=== PATIENT | female | born 1985 | race Caucasian/White ===

== ENCOUNTER → 2020-06-05 | Day surgery (SDC) | payer OTHER ==
[~2020-06-05] MED LIST: ASPIRIN EC81 MG PO; BUSPIRONE HCL15 MG PO; CLARITIN10 MG PO; CLINDAMYCIN 15150 MG PO; CLONAZEPAM0.5 MG PO; DIFLUCAN150 MG PO; ELAVIL50 MG PO; HYDROXYZINE PA100 MG PO; LEXAPRO 10MG TA10 MG PO; MOTRIN600 MG PO; NEURONTIN300 MG PO; RIZATRIPTAN10 MG PO; SINGULAIR10 MG PO; TRAZODONE 50MG50 MG PO; VENTOLIN HFA IN18 GM INH
[2020-06-05 08:18] LABS: HCG (URINE) SCREEN NEGATIVE (NEGATIVE)
[2020-06-05 08:42] LABS: BASOPHIL 0.3 % (0-2); EOSINOPHIL 1.6 % (0-5); HCT 40.8 % (37.0-47.0); HGB 13.4 g/dl (12.5-16.0); LYMPHOCYTE 26.3 % (15-48); MCH 28.8 pg (25.0-31.0); MCHC 32.8 g/dL (32.0-36.0); MCV 87.7 fL (78.0-100.0); MONOCYTE 5.4 % (0-12); MPV 9.4 fL (6.0-9.5); NRBC 0; PLT 185 K/uL (150-400); RBC 4.65 M/uL (4.20-5.40); RDW 12.4 % (11.5-14.0); WBC 10.3 K/uL (4.0-10.5)
== END | disposition home or self-care (01) ==
LOC: FAS 07:40
PROVIDERS: Oral & Maxillofacial Surgery
DX: K02.9 Dental caries, unspecified (principal); K04.7 Periapical abscess without sinus; M41.9 Scoliosis, unspecified; F41.9 Anxiety disorder, unspecified; F17.210 Nicotine dependence, cigarettes, uncomplicated; J45.909 Unspecified asthma, uncomplicated; Z79.899 Other long term (current) drug therapy; Z88.0 Allergy status to penicillin; Z88.1 Allergy status to other antibiotic agents; Z88.8 Allergy status to other drugs, medicaments and biological substances
CPT/HCPCS: 36415; 84703; 85025; 93005; J1100; J1170; J2405; J2704; J3010; J7120